=== PATIENT | female | born 1955 | race Asian ===

== ENCOUNTER 2022-03-08 09:33 | Emergency (ER) | payer BC ==
[~2022-03-08] VITALS: Ht 157.5 cm; Wt 64.0 kg
[2022-03-08 09:45] VITALS: BP_SYST 138
--- NOTE | 2022-03-08 09:55 | NUR ---
Triaged pt and placed in waiting room until bed becomes available. Dr. Grider made aware. Pt stable.
--- NOTE | 2022-03-08 10:15 | NUR ---
Patient to ER bed 5 to gown for evaluation. Side rails up. Report given to Sue CALVERT.
[2022-03-08] MEDS ORDERED: OXYCODONE/ACETAMINOPHEN 5-325 TABLET PO ONE (11:30)
[2022-03-08] MEDS ORDERED: KETOROLAC TROMETHAMINE 60 MG/2 ML VIAL IM ONE (11:30)
--- NOTE | 2022-03-08 11:48 | NUR ---
PT MEDICATED ORDERED
[2022-03-08] MEDS ORDERED: PRED20TA PO ×2 (11:59→12:04)
[2022-03-08] MEDS ORDERED: TRAM50TA2 PO (11:59)
[2022-03-08] MEDS ORDERED: predniSONE 20 MG TABLET PO ONE (12:00)
--- NOTE | 2022-03-08 12:37 | NUR ---
Patient given written and verbal discharge instructions and verbalizes understanding. ER MD discussed with patient the results and treatment provided. Patient in stable condition. Rx of Prednisone and Ultram given. Patient educated on pain management and to follow up with PMD. Opportunity for questions provided and answered. Medication side effect fact sheet provided.
[2022-03-08 12:38] VITALS: BP_SYST 136
== END 2022-03-08 12:38 | disposition home or self-care (01) ==
LOC: SED 09:33
DX: G50.0 Trigeminal neuralgia (principal); M70.62 Trochanteric bursitis, left hip; R51.9 Headache, unspecified; M54.50 Low back pain, unspecified; K21.9 Gastro-esophageal reflux disease without esophagitis; E78.5 Hyperlipidemia, unspecified; Z79.899 Other long term (current) drug therapy; Y93.89 Activity, other specified
CPT/HCPCS: 99283; 82962; 73502; 96372; J7512; J1885